=== PATIENT | female | born 1950 | race Two or more races ===

== ENCOUNTER 2023-07-18 20:05 | Inpatient (IN) | payer MEDICARE, OTHER ==
[~2023-07-18] VITALS: Ht 157.5 cm; Wt 49.5 kg
[2023-07-18] MEDS ORDERED: ONDANSETRON HCL/PF 4 MG/2 ML VIAL ONE (20:20)
[2023-07-18] MEDS: IV NS 0.9% 1,000 ML BAG IV ONE (20:33)
[2023-07-18] MEDS: ONDANSETRON HCL/PF 4 MG/2 ML VIAL IVP ONE (20:33)
[2023-07-18 20:38] LABS: BASOPHILS # (AUTO) 0.1 K/uL (0.0-0.2); BASOPHILS % (AUTO) 1.4 % (0.0-2.0); EOSINOPHILS # (AUTO) 0.1 K/uL (0.0-0.7); EOSINOPHILS % (AUTO) 1.1 % (0.0-6.0); HEMATOCRIT 40 % (33-45); HEMOGLOBIN 13.1 g/dL (11.5-14.8); LYMPHOCYTES # (AUTO) 2.9 K/uL (0.8-4.8); MEAN CORPUSCULAR HEMOGLOBIN 31 PG (26.0-33.0); MEAN CORPUSCULAR HGB CONC 33 g/dl (31.0-36.0); MEAN CORPUSCULAR VOLUME 93 fL (82-100); MONOCYTES # (AUTO) 0.4 K/uL (0.1-1.30); MONOCYTES % (AUTO) 7.2 % (2.0-12.0); NEUTROPHILS # (AUTO) 2.3 K/uL (1.8-8.9); NEUTROPHILS % (AUTO) 39.3 % (43.0-81.0); PLATELET COUNT (AUTO) 208 K/uL (150-450); RED BLOOD CELL COUNT(AUTO) 4.29 MIL/uL (4.0-5.2); RED CELL DISTRIBUTION WIDTH 14.2 % (11.5-15.0); WHITE BLOOD COUNT (AUTO) 5.7 K/uL (4.3-11.0)
[2023-07-18 20:46] LABS: CALCIUM, SERUM 9.5 mg/dL (8.5-10.1); CARBON DIOXIDE 24 mmol/L (21-32); CHLORIDE 101 mmol/L (98-107); GLUCOSE 155 mg/dL (74-106); SODIUM SERUM 137 mmol/L (136-145); UREA NITROGEN, BLOOD 21 mg/dL (7-18)
[2023-07-18 20:49] LABS: INR 1.05 (0.91-1.10); PARTIAL THROMBOPLASTIN TIME 23.9 SEC (24.3-34.3); PROTHROMBIN TIME 10.8 SECS (9.2-11.1); SERUM AMMONIA 7 umol/L (11-32)
[2023-07-18 20:51] LABS: ALANINE AMINOTRANSFERASE 26 U/L (12-78); ALBUMIN 3.8 g/dL (3.4-5.0); ALCOHOL, BLOOD < 3 mg/dL (0-10); ALKALINE PHOSPHATASE 60 U/L (46-116); ASPARTATE AMINOTRANSFERASE 32 U/L (15-37); BILIRUBIN,DIRECT 0.2 mg/dL (0.0-0.2); BILIRUBIN,TOTAL 0.6 mg/dL (0.2-1.0); TOTAL PROTEIN, SERUM 7.2 g/dL (6.4-8.2)
[2023-07-18 20:53] LABS: ACETAMINOPHEN <10 ug/ml (10-30)
[2023-07-18 21:18] LABS: THYROID STIMULATING HORMONE 1.965 uIU/mL (0.358-3.74)
[2023-07-18 21:22] LABS: SALICYLATE 0.4 mg/dL (2.8-20.0)
[2023-07-18] MEDS ORDERED: ACETAMINOPHEN 325 MG TABLET PO PRN (21:30)
[2023-07-18] MEDS ORDERED: LORAZEPAM INJ 2 MG/ML VIAL IV PRN (21:30)
[2023-07-18] MEDS ORDERED: MAG HYDROX/AL HYDROX/SIMETH 30 ML UDC PO PRN (21:30)
[2023-07-18] MEDS: PANTOPRAZOLE 40 MG VIAL IV SCH (21:30)
[2023-07-18] MEDS ORDERED: MORPHINE SULFATE INJ 2 MG/ML DISP.SYRIN IV PRN (21:30)
[2023-07-18] MEDS ORDERED: MAGNESIUM HYDROXIDE 30 ML UDC PO PRN (21:30)
[2023-07-18] MEDS ORDERED: ONDANSETRON HCL/PF 4 MG/2 ML VIAL IVP PRN (21:30)
[2023-07-18] MEDS ORDERED: Z GUARD REMEDY 4 OZ OINT TP PRN (21:30)
[2023-07-18] MEDS: POTASSIUM CL. PREMIX PERIPHER. 50 ML IV SCH (22:30)
[2023-07-18 22:50] LABS: BASOPHILS % (MANUAL) 0 % (0.0-2.0); EOSINOPHILS % (MANUAL) 2 % (0-4); LYMPHOCYTES % (MANUAL) 47 % (16-48); MONOCYTES % (MANUAL) 8 % (0-11.0); NEUTROPHILS % (MANUAL) 43 (42-76)
[2023-07-18 22:51] LABS: PLATELET ESTIMATE ADEQUATE
[2023-07-19 00:45] VITALS: BP 127/74; TEMP 98.4; O2SAT 96
[2023-07-19] MEDS: IV NS 0.9% 1,000 ML IV PRN (01:23)
[2023-07-19] MEDS ORDERED: POTASSIUM CL. PREMIX PERIPHER. 100 ML ONE (02:05)
[2023-07-19 05:00] VITALS: BP_SYST 107; BP_SYST 124; BP_SYST 127; BP_DIAS 71; BP_DIAS 73; BP_DIAS 85; TEMP 98.2; O2SAT 98
[2023-07-19 08:00] VITALS: BP 100/57; TEMP 98.4; O2SAT 97
[2023-07-19 08:00] LABS: BASOPHILS % (AUTO) 0.2 % (0.0-2.0); EOSINOPHILS % (AUTO) 0.1 % (0.0-6.0); HEMATOCRIT 35 % (33-45); HEMOGLOBIN 11.9 g/dL (11.5-14.8); MEAN CORPUSCULAR HEMOGLOBIN 32 PG (26.0-33.0); MEAN CORPUSCULAR HGB CONC 34 g/dl (31.0-36.0); MEAN CORPUSCULAR VOLUME 94 fL (82-100); MONOCYTES # (AUTO) 0.5 K/uL (0.1-1.30); MONOCYTES % (AUTO) 7.3 % (2.0-12.0); NEUTROPHILS % (AUTO) 76.4 % (43.0-81.0); PLATELET COUNT (AUTO) 157 K/uL (150-450); RED BLOOD CELL COUNT(AUTO) 3.75 MIL/uL (4.0-5.2); RED CELL DISTRIBUTION WIDTH 14.2 % (11.5-15.0); WHITE BLOOD COUNT (AUTO) 6.5 K/uL (4.3-11.0)
[2023-07-19] MEDS ORDERED: ALEN35TA51 PO (09:02)
[2023-07-19 09:16] LABS: MAGNESIUM 2.2 mg/dL (1.8-2.4)
[2023-07-19 09:20] LABS: CALCIUM, SERUM 7.9 mg/dL (8.5-10.1); CREATININE 0.9 mg/dL (0.6-1.3); MAGNESIUM 2.2 mg/dL (1.8-2.4); PHOSPHORUS 3.6 mg/dL (2.5-4.9); POTASSIUM 4.3 mmol/L (3.5-5.1)
[2023-07-19 09:22] LABS: CHOLESTEROL 155 mg/dL (<200); HDL CHOLESTEROL 68 mg/dL (40-60); LDL 77 mg/dL (0-99); TRIGLYCERIDES 23 mg/dL (30-150)
[2023-07-19 09:35] LABS: THYROID STIMULATING HORMONE 0.562 uIU/mL (0.358-3.74)
[2023-07-19] MEDS: NEOMY SULF/BACITRAC ZN/POLY 15 GM TUBE TP SCH (10:40)
[2023-07-19] MEDS ORDERED: PANTOPRAZOLE 40 MG TABLET.DR PO SCH (12:00)
== END 2023-07-19 09:45 | disposition home or self-care (01) | DRG 918 ==
LOC: ER 20:05 → TELE 23:59
PROVIDERS: ADMIT Nurse Practitioner Acute Care; ATTEND Nurse Practitioner Family
DX: T40.711A Poisoning by cannabis, accidental (unintentional), initial encounter (principal); Y92.009 Unspecified place in unspecified non-institutional (private) residence as the place of occurrence of the external cause; E87.6 Hypokalemia; Z90.710 Acquired absence of both cervix and uterus; S00.81XA Abrasion of other part of head, initial encounter; W18.30XA Fall on same level, unspecified, initial encounter; R42 Dizziness and giddiness; R73.9 Hyperglycemia, unspecified; Z98.82 Breast implant status; G90.8 Other disorders of autonomic nervous system
CPT/HCPCS: 36415; 70450-TC; 70486-TC; 71045-TC; 72125-TC; 80048-TC; 80061-TC; 80076-TC; 82140-TC; 83735-TC; 84100-TC; 84443-TC; 84484-TC; 85025-TC; 85730-TC; 93307-TC; 97110-TC; 97112-TC; 97116-TC; A4223; C9113; G0378; G0480; J2405; J3480; J7030